=== PATIENT | female | born 1995 | race Caucasian/White ===

== ENCOUNTER 2023-11-18 04:15 | Emergency (ER) | payer MEDICARE, MEDICAID, SELFPAY ==
[2023-11-18 04:20] VITALS: BP 139/71; PULSE 77; RESP 18; O2SAT 100
[2023-11-18 04:28] VITALS: BP 134/78; PULSE 87; RESP 18; TEMP 36.6; O2SAT 100
--- NOTE | 2023-11-18 04:41 | ED.GENADULT ---
HPI - General Adult General Chief complaint: Allergic Reaction Stated complaint: allergic reaction Time Seen by Provider: 11/18/23 04:19 History of Present Illness HPI narrative: patient 28-year-old female who presents emergency department with chief complaint of allergic reaction. The patient reports that she smelled some cough this evening and had allergic reaction the patient reports that she took 2 epi pens and reports that she also took a double dose of Benadryl. The patient states that she felt short of breath Related Data Allergies Allergy/AdvReac Type Severity Reaction Status Date / Time cetirizine [From Zyrtec] Allergy Anaphylaxis Verified 11/18/23 04:40 gabapentin Allergy Anaphylaxis Verified 11/18/23 04:40 human papillomavirus Allergy Anaphylaxis Verified 11/18/23 04:40 vaccine, quadr [From Gardasil (PF)] latex Allergy Hives Verified 11/18/23 04:40 meloxicam Allergy Anaphylaxis Verified 11/18/23 04:40 morphine Allergy Seizure Verified 11/18/23 04:40 Penicillins Allergy Anaphylaxis Verified 11/18/23 04:40 pregabalin [From Lyrica] Allergy Anaphylaxis Verified 11/18/23 04:40 Sulfa (Sulfonamide Allergy Anaphylaxis Verified 11/18/23 04:40 Antibiotics) zonisamide Allergy Hives Verified 11/18/23 04:40 acetaminophen [From Fioricet] AdvReac Itching Verified 11/18/23 04:40 adhesive AdvReac Anaphylaxis Verified 11/18/23 04:40 butalbital [From Fioricet] AdvReac Itching Verified 11/18/23 04:40 caffeine [From Fioricet] AdvReac Itching Verified 11/18/23 04:40 cyclobenzaprine AdvReac Anaphylaxis Verified 11/18/23 04:40 fludrocortisone AdvReac Seizure Verified 11/18/23 04:40 sumatriptan AdvReac Hives Verified 11/18/23 04:40 tizanidine AdvReac Migraine Verified 11/18/23 04:40 topiramate [From Topamax] AdvReac Other Verified 11/18/23 04:40 Review of Systems Review of Systems: A 10 system review of systems was completed on the patient and is negative except for what is stated in the HPI. Nursing and ancillary documentation was reviewed. Exam Narrative: GENERAL: Well-appearing, well-nourished, and in no acute distress. HEAD: Normocephalic, atraumatic. EYES: PERRLA and EOMI. ENT: Nares clear, no rhinorrhea or epistaxis. Mucous membranes moist. NECK: Supple. CHEST: Clear to auscultation. No respiratory distress. HEART: Regular rate and rhythm. No murmur heard. Normal peripheral pulses. ABDOMEN: Soft, nontender, nondistended, normal active bowel sounds. EXTREMITIES: Normal range of motion. No edema. SKIN: Warm, dry, no rash. NEURO: No focal deficits. Alert and oriented x3. PSYCH: Normal mood and affect. Medical Decision Making MDM Narrative Medical decision making narrative: differential diagnosis includes allergic reaction, urticaria, patient received a dose of IV steroids in the emergency department is feeling much better this time the patient has been observed more than 4 hours after the onset of her symptoms with 4 hours post receiving epi patient shows no signs of acute anaphylaxis at this point Discharge Plan Discharge Clinical Impression: Allergic reaction Patient Disposition: Home, Self-Care Condition: Stable Instructions: Antibiotic Form, General Allergic Reaction (ED) Prescriptions: New prednisone 20 mg tablet 40 mg PO DAILY 5 Days Qty: 10 0RF Follow-up/Referrals: PHYSICIAN,TIRE [employer] MANAGER [Non-Staff] - Marko Romero MD [Physician] -
[2023-11-18 04:45] VITALS: BP 133/74; PULSE 72; RESP 16; O2SAT 100
[2023-11-18] MEDS: methylPREDNISolone SOD SUCC 125 MG VIAL IM (05:19)
[2023-11-18 06:15] VITALS: BP 122/68; PULSE 72; RESP 18; O2SAT 100
== END 2023-11-18 06:21 | disposition home or self-care (01) ==
PROVIDERS: Emergency Provider Emergency Medicine
DX: T78.1XXA Other adverse food reactions, not elsewhere classified, initial encounter (principal); R06.02 Shortness of breath; X58.XXXA Exposure to other specified factors, initial encounter
CPT/HCPCS: 96372; 99283; J2919

== ENCOUNTER 2024-02-09 18:52 | Emergency (ER) | payer MEDICARE, MEDICAID, SELFPAY ==
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
[2024-02-09 19:05] VITALS: BP 119/76; PULSE 88; RESP 16; TEMP 36.6; O2SAT 100
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
== END 2024-02-09 19:48 | disposition home or self-care (01) ==
PROVIDERS: Emergency Provider Nurse Practitioner Family
DX: S90.512A Abrasion, left ankle, initial encounter (principal); X58.XXXA Exposure to other specified factors, initial encounter; Y93.11 Activity, swimming; K21.9 Gastro-esophageal reflux disease without esophagitis; D89.40 Mast cell activation, unspecified
CPT/HCPCS: 73630; 99213; G0463

== ENCOUNTER 2024-05-07 08:48 | Emergency (ER) | payer MEDICARE, SELFPAY ==
[2024-05-07 08:58] VITALS: BP 133/72; PULSE 105; RESP 16; TEMP 36.4; O2SAT 100
--- NOTE | 2024-05-07 09:06 | ED.GENADULT ---
HPI - General Adult General Chief complaint: Unspecified Stated complaint: Med Refill Time Seen by Provider: 05/07/24 09:00 Source: patient Mode of arrival: ambulatory Limitations: no limitations History of Present Illness HPI narrative: Juliette is a 28-year-old female patient presenting to the clinic today for a medication refill. She reports she is out of her epi pen. Attempted to call her doctor today for a refill and [place]. States that she took her last epi pen last night as she has history of mast cell disorder. States that she developed difficulty breathing and hives last night so she took an EpiPen. She did not go to the emergency room after taking the EpiPen. Her symptoms improved. Has been also taking Benadryl and famotidine. States that she still has slight amount of hives on her inner thighs at this time. Has multiple allergies. Related Data Allergies Allergy/AdvReac Type Severity Reaction Status Date / Time adhesive Allergy Anaphylaxis Verified 05/07/24 09:07 cetirizine [From Zyrtec] Allergy Anaphylaxis Verified 05/07/24 09:07 cyclobenzaprine Allergy Anaphylaxis Verified 05/07/24 09:07 fludrocortisone Allergy Seizure Verified 05/07/24 09:07 gabapentin Allergy Anaphylaxis Verified 05/07/24 09:07 human papillomavirus Allergy Anaphylaxis Verified 05/07/24 09:07 vaccine, quadr [From Gardasil (PF)] meloxicam Allergy Anaphylaxis Verified 05/07/24 09:07 morphine Allergy Seizure Verified 05/07/24 09:07 Penicillins Allergy Anaphylaxis Verified 05/07/24 09:07 pregabalin [From Lyrica] Allergy Anaphylaxis Verified 05/07/24 09:07 Sulfa (Sulfonamide Allergy Anaphylaxis Verified 05/07/24 09:07 Antibiotics) acetaminophen [From Fioricet] AdvReac Itching Verified 05/07/24 09:07 butalbital [From Fioricet] AdvReac Itching Verified 05/07/24 09:07 caffeine [From Fioricet] AdvReac Itching Verified 05/07/24 09:07 latex AdvReac Hives Verified 05/07/24 09:07 sumatriptan AdvReac Hives Verified 05/07/24 09:07 tizanidine AdvReac Headache Verified 05/07/24 09:07 topiramate [From Topamax] AdvReac Headache Verified 05/07/24 09:07 zonisamide AdvReac Hives Verified 05/07/24 09:07 Review of Systems Review of Systems: Pertinent positives per HPI. Patient denies any fever, chills, headache, visual changes, dizziness, cough, runny nose, sore throat, shortness of breath, chest pain, palpitations, nausea, vomiting, diarrhea, constipation, abdominal pain, or any urinary issues. [facility] Comments At the time of my signature, I reviewed and agree with the nursing past medical, surgical, social, and family history. There is no relevant family history pertinent to the patient complaint. Exam Narrative: General: Well-developed, well nourished, in no apparent distress, very poor hygiene Head: Normocephalic, atraumatic. Cardio: Regular rate and rhythm, s1 and s2 normal, no murmur appreciated. Resp: Clear to auscultation bilaterally, no rhonchi, rales, wheezing or rubs. Integumentary: [place], warm, and dry, intact without lesion, no rashes. Course Course Emergency Course: Portions of this record may have been created with voice recognition software. Level of Care: Express Care Visit Vital Signs Vital signs: Vital Signs Temperature 36.4 C 05/07/24 08:58 Pulse Rate 105 H 05/07/24 08:58 Respiratory Rate 16 05/07/24 08:58 Blood Pressure 133/72 05/07/24 08:58 Pulse Oximetry 100 05/07/24 08:58 Temperature 36.4 C 05/07/24 08:58 Pulse Rate 105 H 05/07/24 08:58 Respiratory Rate 16 05/07/24 08:58 Blood Pressure 133/72 05/07/24 08:58 Pulse Oximetry 100 05/07/24 08:58 Vital signs reviewed Medical Decision Making MDM Narrative Medical decision making narrative: At the time of visit patient is resting comfortably on the exam table. Patient appears to be nontoxic. Plan: No obvious hives, difficulty swallowing, respiratory distress, or wheezing at this time
== END 2024-05-07 09:14 | disposition home or self-care (01) ==
PROVIDERS: Emergency Provider Nurse Practitioner Family
DX: T78.40XA Allergy, unspecified, initial encounter (principal); K21.9 Gastro-esophageal reflux disease without esophagitis; Z96.0 Presence of urogenital implants; D89.40 Mast cell activation, unspecified
CPT/HCPCS: 99211; 99213; G0463

== ENCOUNTER 2024-11-06 12:32 | Emergency (ER) | payer MEDICARE, MEDICAID, SELFPAY ==
--- NOTE | 2024-11-06 12:34 | ED.FEMALEGU ---
HPI - Female Genitourinary General Stated complaint: HEMORRHOID Time Seen by Provider: 11/06/24 12:33 Source: patient Mode of arrival: ambulatory Limitations: no limitations History of Present Illness HPI Narrative: Juliette is a 29-year-old female patient presenting to the clinic today with complaints of a hemorrhoid times. She reports Related Data Allergies Allergy/AdvReac Type Severity Reaction Status Date / Time adhesive Allergy Anaphylaxis Verified 05/07/24 09:07 cetirizine (From Zyrtec) Allergy Anaphylaxis Verified 05/07/24 09:07 cyclobenzaprine Allergy Anaphylaxis Verified 05/07/24 09:07 fludrocortisone Allergy Seizure Verified 05/07/24 09:07 gabapentin Allergy Anaphylaxis Verified 05/07/24 09:07 human papillomavirus Allergy Anaphylaxis Verified 05/07/24 09:07 vaccine, quadr (From Gardasil (PF)) meloxicam Allergy Anaphylaxis Verified 05/07/24 09:07 morphine Allergy Seizure Verified 05/07/24 09:07 Penicillins Allergy Anaphylaxis Verified 05/07/24 09:07 pregabalin (From Lyrica) Allergy Anaphylaxis Verified 05/07/24 09:07 Sulfa (Sulfonamide Allergy Anaphylaxis Verified 05/07/24 09:07 Antibiotics) acetaminophen (From Fioricet) AdvReac Itching Verified 05/07/24 09:07 butalbital (From Fioricet) AdvReac Itching Verified 05/07/24 09:07 caffeine (From Fioricet) AdvReac Itching Verified 05/07/24 09:07 latex AdvReac Hives Verified 05/07/24 09:07 sumatriptan AdvReac Hives Verified 05/07/24 09:07 tizanidine AdvReac Headache Verified 05/07/24 09:07 topiramate (From Topamax) AdvReac Headache Verified 05/07/24 09:07 zonisamide AdvReac Hives Verified 05/07/24 09:07 Review of Systems Review of Systems: Pertinent positives per HPI. Patient denies any fever, chills, rash, headache, visual changes, dizziness, cough, runny nose, sore throat, shortness of breath, chest pain, palpitations, nausea, vomiting, diarrhea, constipation, abdominal pain, or any urinary issues. [facility] Comments At the time of my signature, I reviewed and agree with the nursing past medical, surgical, social, and family history. There is no relevant family history pertinent to the patient complaint. Exam Narrative: General: Well-developed, well nourished, in no apparent distress. Head: Normocephalic, atraumatic. Cardio: Regular rate and rhythm, s1 and s2 normal, no murmur appreciated. Resp: Clear to auscultation bilaterally, no rhonchi, rales, wheezing or rubs. Abdomen: Soft, pliable, bowel sounds present in all quadrants, non-tender to palpation, no organomegly, no CVAT tenderness. Rectum: Course Course Emergency Course: Portions of this record may have been created with voice recognition software. Level of Care: Express Care Visit Vital Signs Vital signs: Vital signs reviewed MDM - Female Genitourinary MDM Narrative Medical decision making narrative: At the time of visit patient is resting comfortably on the exam table. Patient appears to be nontoxic. Plan: Supportive measures were discussed with the patient and they voiced understanding discharge instructions and agrees to treatment plan. Return precautions reviewed Differential Diagnosis Differential diagnosis: Likely other (Anal fissure, hemorrhoid, rectal bleeding) Discharge Plan Discharge Patient Language: Ukrainian Prescriptions: No Action epinephrine [EpiPen 2-Jaiden] 0.3 mg/0.3 mL auto-injector 0.3 mg IM Q5-15M PRN (Reason: anaphylaxis) Qty: 2 1RF Rx Instructions: do not exceed 3 doses per episode Follow-up/Referrals: [facility],JEFFERY Dodson [Primary Care Provider] - Quality NIHSS Nursing Documentation ED NIHSS nursing documentation: reviewed/agree
[2024-11-06 12:50] VITALS: BP 128/61; PULSE 94; RESP 16; TEMP 36.6; O2SAT 100
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
== END 2024-11-06 12:50 | disposition left against medical advice (07) ==
PROVIDERS: PCP Physician Assistant
DX: Z53.21 Procedure and treatment not carried out due to patient leaving prior to being seen by health care provider (principal)
CPT/HCPCS: 99199